=== PATIENT | female | born 1935 | race Two or more races ===

== ENCOUNTER 2017-12-14 09:24 | Emergency (ER) | END 2017-12-14 13:35 | disposition home or self-care (01) ==

== ENCOUNTER 2018-12-26 10:06 | Observation (INO) | payer OTHER ==
[~2018-12-26] VITALS: Ht 154.9 cm; Wt 57.2 kg
[~2018-12-26 10:06] MED LIST: ALEN70TA5 PO; FAMO-96 PO; FAMO20TA18 PO; LOSA100T15 PO; OMEP20CA16 PO; PANT40TA3 PO; SIMV20TA PO; SIMV40TA2 PO; TEMA15CA6 PO
[2018-12-26] MEDS ORDERED: ONDANSETRON 4 MG INJ IV STA (12:21)
[2018-12-26] MEDS ORDERED: ONDANSETRON 4 MG INJ ONE (12:21)
[2018-12-26] MEDS ORDERED: SOD CHLORIDE 0.9% 1,000 ML IV STA (13:23)
[2018-12-26] MEDS ORDERED: MECLIZINE 12.5 MG TAB PO ONE (13:30)
[2018-12-26] MEDS ORDERED: LIDOCAINE/MYLANTA 40 ML BTL PO STA (13:31)
[2018-12-26] MEDS ORDERED: FAMOTIDINE 20 MG INJ IV ONE (14:00)
[2018-12-26] MEDS ORDERED: NACL 0.9% 3 ML SYG IV SCH (14:30)
[2018-12-26] MEDS ORDERED: DOCUSATE SODIUM 100 MG CAP PO PRN (14:30)
[2018-12-26] MEDS ORDERED: MECLIZINE 25 MG TAB PO PRN (14:30)
[2018-12-26] MEDS ORDERED: PANTOPRAZOLE (EC) 40 MG TAB PO SCH (14:30)
[2018-12-26] MEDS ORDERED: ONDANSETRON 4 MG INJ IV PRN (14:30)
[2018-12-26] MEDS ORDERED: ONDANSETRON 4 MG TAB PO PRN (14:30)
[2018-12-26] MEDS ORDERED: ACETAMINOPHEN 325 MG TAB PO PRN ×2 (14:30)
[2018-12-26] MEDS: LOSARTAN 50 MG TAB PO SCH (16:02)
[2018-12-26] MEDS: ENOXAPARIN 40 MG/0.4 ML SYG SC SCH (16:02)
[2018-12-26] MEDS ORDERED: ATORVASTATIN 20 MG TAB PO SCH (21:00)
[2018-12-27] MEDS ORDERED: ALENDRONATE 70 MG TAB PO SCH (06:00)
[2018-12-27] MEDS ORDERED: FAMOTIDINE 20 MG TAB PO SCH (09:00)
[2018-12-27] MEDS: LOSARTAN 50 MG TAB PO SCH (09:07)
[2018-12-27] MEDS: ENOXAPARIN 40 MG/0.4 ML SYG SC SCH (09:12)
[2018-12-27] MEDS: POTASSIUM CHLORIDE (SR) 20 MEQ TAB PO SCH ×2 (10:48→14:43)
[2018-12-27 15:10] VITALS: BP 171/60; PULSE 59; RESP 16
[2018-12-27 16:23] VITALS: Ht 154.9 cm; Wt 57.2 kg
== END 2018-12-27 20:00 | disposition home or self-care (01) ==
LOC: E/R 10:06 → TEL 12-27 14:06 → CANRESERV 12-27 14:40
PROVIDERS: ADMIT Internal Medicine; ATTEND Internal Medicine
DX: R42 Dizziness and giddiness (principal); K21.9 Gastro-esophageal reflux disease without esophagitis; R00.1 Bradycardia, unspecified; E78.00 Pure hypercholesterolemia, unspecified
CPT/HCPCS: 36415; 70450; 71045; 80048; 80061; 80307; 81003; 83036; 84439; 84443; 84480; 84484; 85025; 85610; 85730; 93005; 93880; 96374; 96375; 99285; G0378; J1650; J2405; J7030; 99217